=== PATIENT | female | born 1970 | race Caucasian/White ===

== ENCOUNTER 2019-08-30 04:47 | Emergency (ER) | payer MEDICAID ==
[~2019-08-30] VITALS: Ht 162.6 cm; Wt 112.0 kg
[2019-08-30 04:52] VITALS: Ht 162.6 cm; Wt 112.0 kg
[2019-08-30 06:30] VITALS: BP 167/81
== END 2019-08-30 06:55 | disposition home or self-care (01) ==
LOC: ED 04:47
DX: M54.9 Dorsalgia, unspecified (principal); R50.9 Fever, unspecified; Z20.828 Contact with and (suspected) exposure to other viral communicable diseases
CPT/HCPCS: U0003-CS